=== PATIENT | female | born 1995 | race Caucasian/White ===

== ENCOUNTER 2020-07-12 15:53 | Emergency (ER) | payer OTHER ==
[~2020-07-12] VITALS: Ht 162.6 cm; Wt 59.0 kg
== END 2020-07-12 23:38 ==
LOC: ER 15:53
DX: A09 Infectious gastroenteritis and colitis, unspecified (principal); Z20.828 Contact with and (suspected) exposure to other viral communicable diseases

== ENCOUNTER 2021-04-05 08:43 | Inpatient (IN) | payer OTHER ==
[~2021-04-05] VITALS: Ht 162.6 cm; Wt 59.9 kg
[2021-04-05] MEDS ORDERED: PROTONIX PO (08:50)
--- NOTE | 2021-04-05 08:51 | NUR ---
SE RECIBE PACIENTE ALERTA, ORIENTADA X 3 ESFERAS REFIERE TENER DOLOR ABDOMINAL , 9 EPISODIOS DE VOMITOS QUE COMENZARON KENDAL EN LA NOCHE, Y 6 EPISODIOS DE DIARREAS. SE UBICA EN AREA DE OBSERVACION.
--- NOTE | 2021-04-05 09:48 | NUR ---
MRS. GODINEZ EDUCA A PTE SOBRE TX MEDICO ESTA REFIERE ENTENDER. SE BERTRAND MUESTRAS DE LABORATORIO UTILIZANDO MEDIDAS ASEPTICAS. SE COLOCA H/L EL CUAL S EENCUENTRA PATENTE Y ARMIDA DE EDEMA, SE ADMINISTRAN MEDICAMENTOS A PTE LOS CUALES TOLERA. PTE SE CONTINUA MONITORIANDO POR CAMBIOS.
--- NOTE | 2021-04-05 16:06 | NUR ---
PTE ALERTA Y ORIENTADA X 3 ESFERAS EN COMPANIA DE FAMILIAR,EN ANDREW CON BARANDAS ELEVADAS,REFIERE DOLOR,PTE CON DEMEROL IV BAJANDO AL MOMENTO.AREA DE VENOPUNCION PATENTE Y ARMIDA DE EDEMA CON FLUIDOS DE MANTENIMIENTO,PENDIENTE A RE-EVALUACION.
== END 2021-04-12 14:12 | disposition home or self-care (01) | DRG 343 ==
LOC: ER 08:43 → MEDJ 20:18
PROVIDERS: Surgery; ADMIT Internal Medicine; ATTEND Internal Medicine
PROC: 0DTJ4ZZ Resection of Appendix, Percutaneous Endoscopic Approach (ICD-10-PCS; principal; 2021-04-06 13:00)
DX: K35.31 Acute appendicitis with localized peritonitis and gangrene, without perforation (principal); D50.9 Iron deficiency anemia, unspecified

== ENCOUNTER 2022-03-24 09:01 | Emergency (ER) | payer OTHER ==
[~2022-03-24] VITALS: Ht 162.6 cm; Wt 61.2 kg
[~2022-03-24 09:01] MED LIST: PROTONIX PO
[2022-03-24] MEDS ORDERED: ZITHROMAX500 MG PO (13:53)
== END 2022-03-24 14:18 | disposition home or self-care (01) ==
LOC: ER 09:01
DX: U07.1 COVID-19 (principal); A49.3 Mycoplasma infection, unspecified site; Z88.6 Allergy status to analgesic agent

== ENCOUNTER 2023-04-26 08:00 | Outpatient (CLI) | payer OTHER ==
[~2023-04-26 08:00] MED LIST changes: +ZITHROMAX500 MG PO
== END 2023-04-26 08:08 | disposition home or self-care (01) ==
LOC: SONOGRAMA 08:00
PROVIDERS: ATTEND Internal Medicine Gastroenterology
DX: N93.0 Postcoital and contact bleeding (principal)